=== PATIENT | male | born 1980 | race Caucasian/White ===

== ENCOUNTER 2017-06-09 13:29 | Emergency (ER) | payer SELFPAY ==
[~2017-06-09] VITALS: Wt 77.3 kg
[2017-06-09] MEDS ORDERED: BEN25 PO (14:30)
[2017-06-09] MEDS ORDERED: HC30CR25 TOP (14:30)
--- NOTE | 2017-06-10 19:30 | ERA ---
ER Documentation Chief Complaint Date/Time DATE: 06/10/17 TIME: 19:27 Chief Complaint rash HPI This is a 29-year-old male presenting with a chief complaint of rash 1 month that he describes as pruritic. Patient has not done anything to relieve the symptoms. Patient does not identify any specific pattern or previous symptoms in the past. Patient takes no medications denies any other medical conditions. Patient also been reviewed and are consistent with history given. No recent travel, vaccination status is up-to-date. Denies all other symptoms and describes no other associated manifestations. ROS All systems reviewed and are negative except as per history of present illness. Medications Home Meds Active Scripts Diphenhydramine Hcl* (Benadryl*) 25 Mg Cap, 25 MG PO Q6 Y for ITCHING/RASH, #30 TAB Prov:DENICE COLEY PA-C 06/09/17 Hydrocortisone* Topical (Hydrocortisone* Topical) 2.5%-28.3 Gm Cream..g., 1 APPLIC TOP BID, #1 TUB Prov:DENICE COLEY PA-C 06/09/17 Allergies Allergies: Coded Allergies: No Known Allergy (Unverified , 06/09/17) PMhx/Soc Medical and Surgical Hx: pt denies Medical Hx, pt denies Surgical Hx Hx Alcohol Use: No Hx Substance Use: No Hx Tobacco Use: No Smoking Status: Never smoker Physical Exam Vitals Vital Signs Date Time Temp Pulse Resp B/P Pulse Ox O2 Delivery O2 Flow Rate FiO2 06/09/17 13:33 98.6 85 20 141/72 98 Physical Exam Const: Healthy-appearing. Well-nourished. Well-developed. No acute distress. Skin: 20-30 cm plaque most consistent with psoriasis with spit signs on the left extensor elbow. 15 x 5 cm plaque most consistent with psoriasis with mild lichenification under the hairline of the back of the neck. Ext: No edema or palpable cord. Normal movement of all extremities grossly observed. Neur: Awake, alert and oriented x3. Neurovascularly intact bilaterally. Oral: No oral edema visualized. Mucous membranes moist and pink. Head: Normocephalic, Atraumatic. Eyes: Non-injected; No discharge. EOMI and GILDA bilaterally. Ears: Normal External Ears, EACs clear, TM normal bilaterally without erythema. Nose: Normal external nose; no discharge, or sinus tenderness. Neck: No cervical lymphadenopathy, masses or goiter palpated. ~ No meningismus. Pulm: Good air movement in upper and lower respiratory tracts. No dyspnea, stridor, tripoding or drooling. Clear to auscultation bilaterally. Cardio: Regular rate and rhythm; No murmurs, gallops or rubs auscultated. No JVD grossly observed. No cyanosis. Capillary refill less than 2 seconds. Abd: Soft, non tender, non distended. No guarding, masses. Normal bowel sounds. MS: Normal motor strength, normal tone with gross examination. Back: No midline, flank or CVA tenderness. Psych: Normal Mood and Affect. 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 Patient has not done anything to relieve symptoms. Patient will be discharged with hydrocortisone cream and diphenhydramine with a referral to professional architect for chronic management. At this time a low suspicion for systemic or infectious involvement. Patient's vitals are stable and his current condition is appropriate for discharge. Patient will be discharged at this time of discharge instructions and return precautions. Departure Diagnosis: Primary Impression: Psoriasis Condition: Stable Patient Instructions: What Is Psoriasis? Referrals: INDIGO COVARRUBIAS MD,ALFRED KELLY MD,DENICE GONZALEZ,YANELIS CASTELLON,SERENA GOLDMAN Additional Instructions: Follow up with your PCP within the next 1-3 days for a more thorough evaluation and a possible referral to a specialist. Return the the emergency department immediately if symptoms worsen or change. If you have any questions regarding medications, ask your pharmacist or us before you leave. If any adverse reactions occur while taking your medications, discontinue the treatment and return to the emergency department immediately. Take your medications as directed, and complete the entire course of treatment. DENICE COLEY PA-C Jun 10, 2017 19:30
== END 2017-06-09 14:48 | disposition home or self-care (01) ==
LOC: FTE 13:29
DX: L40.9 Psoriasis, unspecified (principal)
CPT/HCPCS: 99283